=== PATIENT | female | born 1995 | race Caucasian/White ===

== ENCOUNTER 2018-08-05 16:09 | Emergency (ER) | payer MEDICAID, SELFPAY ==
[2018-08-05 16:10] VITALS: BP 123/88; PULSE 111; RESP 16; TEMP 37.5; O2SAT 99; BMI 23.3
[2018-08-05 17:30] LABS: Absolute Lymphocyte Count 1.28 X10^3/ul (0.83-4.51); Absolute Neutrophil Count 4.6 X10^3/uL (2.0-7.7); Basophil# 0.01 X10^3/uL; Basophil% 0.2 % (0-1); Eosinophil# 0.04 X10^3/uL; Eosinophils% 0.6 % (0-5); Hematocrit 43.4 % (37-47); Hemoglobin 14.8 g/dl (12.0-15.0); Lymphocyte # 1.28 X10^3/ul (4.0); Lymphocyte % 19.7 % (19-41); Mean Corp Hgb Conc 34.1 g/gl (32-36); Mean Corpuscular Volume 87.9 fL (81-99); Mean Platelet Vol. 9.8 fl (6.2-12.0); Monocyte% 9.2 % (0-10); Neutrophil # 4.55 X10^3/uL (2.7-7.7); Neutrophil % 70.1 % (47-70); Platelet Count 155 K/mm3 (150-450); RBC Distribution Width CV 12.1 % (11.6-14.6); RBC Distribution Width SD 38.9 fl (35.1-43.9); Red Blood Count 4.94 M/mm3 (4.2-5.4); White Blood Count 6.5 K/mm3 (4.4-11.0)
[2018-08-05 17:38] LABS: POSITIVE COUNT NO; POSITIVE DIFFERENTIAL NO; POSITIVE MORPHOLOGY NO
[2018-08-05 18:05] LABS: Pregnancy, Serum, hCG Quali. NEGATIVE Negative (0-9 Nonpreg)
--- NOTE | 2018-08-05 18:14 | ED.VISSUMM ---
- ER Visit Summary Date of Service: 08/05/18 Chief Complaint: [Vaginal bleeding] History of Present Illness: The patient is a 23 F [presents to the emergency department with complaint of vaginal bleeding that started 10 days ago. Patient states that she had been on control and then decided that she wanted to try to get and she stopped taking her control. Patient had a. On July 08. Patient then subsequently started bleeding again 10 days ago. Patient states that she took a test on July 24 because she was prescribed an antibiotic for an upper respiratory infection and it was negative at that time. Patient concerned that she might be possibly and is O- blood type. Patient describes some minimal lower abdominal discomfort. Patient denies any urinary symptoms.] Patient describes bleeding as light and has not been heavy. She is not passing clots. At times it is dark blood and at times it is bright red. Patient likens it to a light period. Physical Examination: [HEENT-PERRLA, EOMI. Cranial nerves II through XII grossly intact. TMs clear. Mucous membranes moist. No adenopathy. Cardiovascular-regular rate and rhythm without murmur or ectopy Lungs-clear to auscultation, chest wall stable without crepitus or subcu emphysema Abdomen-normoactive bowel sounds, soft. Patient has minimal tenderness over the suprapubic region. There is no rebound, rigidity, or perineal signs. Extremities-intact ?4, normal range of motion, normal pulses, atraumatic] Test Results: [CBC with differential obtained was normal. Serum hCG was negative.] Emergency Department Course and Treatment: [None] Treatment Plan: [None indicated] Disposition: [Discharged home in stable condition. 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 It may contain incorrect words, spelling, and punctuation that were not noted in review of the chart prior to signing ED Disposition - Plan for ED Patient: Chief Complaint: Vag Bleeding Referrals: Larry Lara MD [Primary Care Provider] -
--- NOTE | 2018-08-05 18:18 | ED.DEP ---
ED Disposition - Plan for ED Patient: Chief Complaint: Vag Bleeding Instructions: ED Bleed Irregular Vaginal Referrals: Larry Lara MD [Primary Care Provider] - Cynthia Deras MD [STAFF PHYSICIAN] - 3-5 Days
[2018-08-05 18:34] VITALS: BP 120/80; PULSE 76; RESP 18; O2SAT 99
== END 2018-08-05 18:34 | disposition home or self-care (01) ==
LOC: ED 18:26
PROVIDERS: Emergency Medicine; Emergency Provider Emergency Medicine
DX: N93.8 Other specified abnormal uterine and vaginal bleeding (principal); Z72.0 Tobacco use
CPT/HCPCS: 84703; 85025; 86900; 86901; 99282

== ENCOUNTER 2025-09-28 15:39 | Emergency (ER) | payer SELFPAY ==
[2025-09-28 15:40] VITALS: BP 137/95; PULSE 93; RESP 16; TEMP 37; O2SAT 100; BMI 22.8
--- NOTE | 2025-09-28 19:08 | EX.ED.UPPERE ---
HPI History of Present Illness HPI Narrative: Patient presents with a dog bite to her left thumb that occurred 3 days ago. 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 Patient states that this was a puppy and was not vaccinated against rabies. Patient states she is unable to track the dog. Patient states she contacted someone at the health department and was told to come to the emergency department for rabies vaccine. Patient denies any paresthesias or weakness. Chief Complaint: Bite Informant: patient Occured/Mechanism Comment: Dog bite Onset/Context/Timing Onset: Days (3) Timing: Continuous Quality of Pain: - (Tightness) Location: Left thumb Narrative Tetanus Immunization: <5 years PFSH PFSH Medical History no medical history no medical history Home Medications ?Medication ?Instructions ?Recorded ?Last Taken ?Type NK 08/05/18 Unknown History Allergy/AdvReac Type Severity Reaction Status Date / Time No Known Allergies Allergy Verified 09/28/25 15:42 Surgical History no surgical history no surgical history Social History Smoking Status: Current every day smoker tobacco type: e-cigarettes ROS ROS ED Constitutional Constitutional ED: Denies chills or fever(s) Eyes Eyes: Denies blurry vision or change in vision ENT ENT ED: Denies rhinorrhea or sore throat Cardiovascular Cardiovascular: Denies chest pain or palpitations Respiratory/Chest Respiratory/Chest: Denies cough or dyspnea Gastrointestinal Gastrointestinal: Denies nausea or vomiting Genitourinary Genitourinary ED: Denies dysuria or hematuria Musculoskeletal Musculoskeletal: Denies back pain or neck pain Integumentary Denies abscess or rash Neurologic Neurologic: Denies headache(s) or weakness Allergic/Immunologic Allergic/Immunologic ED: Denies mouth swelling or urticaria EXAM Physical Exam Const Vital Signs: 09/28/25 15:40 Temperature 98.6 F Temperature Source Oral Pulse Rate 93 Respiratory Rate 16 Blood Pressure 137/95 H Blood Pressure Mean 109 Pulse Ox 100 Oxygen Delivery Method Room Air Positive well nourished and well developed General Appearance ED: well developed and NAD HEENT Reports moist mucous membranes normocephalic and atraumatic Neck full ROM and supple Extremity Extremity Narrative: There is a healing dog bite over the dorsal aspect of the left thumb over the IP joint. There is good range of motion. There is no evidence of joint infection. There is no evidence of wound infection. Sensation was intact to light touch in all digits. Capillary refill was less than 2 seconds in all digits. Strength is 5/5 in in flexion and extension of the MP and IP joints of the left thumb. Neuro oriented x3, CN's II-XII intact bilaterally, moves all extremities, no focal motor deficits and no sensory deficits noted Sensorium / Orientation: alert Motor Exam: strength 5/5 throughout MDM MDM MDM Narrative Medical decision making narrative: Patient was given injection of rabies immunoglobulin around the wound. The remainder of the rabies immunoglobulin was given intramuscularly. Patient was given rabies vaccine intramuscularly. Patient was instructed to follow-up in 3 days for repeat vaccine. Discharge Plan Triage Chief Complaint: Bite ED Provider: Alejandro Price Dx/Rx/DC Orders Clinical Impression: Dog bite of left thumb, Nicotine vapor product user Instructions: ED Dog Bite Prescriptions: No Action NK Primary Care Provider: Bessy Jamil RESIDENTIAL MONITOR Referrals: Larry Lara MD [Non-Staff, Family Practice] - As Needed Print Language: Indonesian Disposition Disposition: Home, Self Care
[2025-09-28] MEDS: Rabies Immune Globulin/PF 300 UNIT/ML, 5 ML VIAL 1100 UNIT IM (19:52)
[2025-09-28 20:24] VITALS: BP 111/67; PULSE 78; RESP 16; TEMP 36.6; O2SAT 99
== END 2025-09-28 20:25 | disposition home or self-care (01) ==
PROVIDERS: Emergency Provider Emergency Medicine; PCP Nurse Practitioner Family; Visit Provider Emergency Medicine
DX: S61.052A Open bite of left thumb without damage to nail, initial encounter (principal); W54.0XXA Bitten by dog, initial encounter; F17.290 Nicotine dependence, other tobacco product, uncomplicated; Z23 Encounter for immunization
CPT/HCPCS: 90675; 96372; 99282; 90375

== ENCOUNTER 2025-10-01 09:36 | Outpatient (CLI) | payer SELFPAY ==
[2025-10-01 10:05] VITALS: BP 112/79; PULSE 75; RESP 16; TEMP 36.9; O2SAT 100; BMI 22.6
== END 2025-10-01 11:37 | disposition home or self-care (01) ==
PROVIDERS: PCP Nurse Practitioner Family; Visit Provider Emergency Medicine
DX: Z23 Encounter for immunization (principal)
CPT/HCPCS: 90675

== ENCOUNTER 2025-10-05 09:30 | Outpatient (CLI) | payer SELFPAY ==
[2025-10-05 09:30] VITALS: BP 125/85; PULSE 67; RESP 16; O2SAT 100
[2025-10-05 09:31] VITALS: BP 125/85; PULSE 71; O2SAT 100; BMI 22.6
[2025-10-05 09:56] VITALS: BP 125/78; PULSE 84; RESP 16; TEMP 36.1; O2SAT 100
== END 2025-10-05 10:13 | disposition home or self-care (01) ==
PROVIDERS: PCP Nurse Practitioner Family; Visit Provider Emergency Medicine
DX: Z23 Encounter for immunization (principal)
CPT/HCPCS: 90675; 96372

== ENCOUNTER 2025-10-12 09:31 | Outpatient (CLI) | payer SELFPAY ==
[2025-10-12 09:32] VITALS: BP 101/79; PULSE 82; RESP 18; TEMP 36.6; O2SAT 100; BMI 22.6
--- OUTSIDE RECORDS SUMMARY | 2025-10-12 11:22 | XMS RPT_ITS | CCD ---
Author Organization [facility] Care Team Providers Care Retail Special Event Associate Name Role Phone FRED AHRP DO Admitting Unavailable FRED HARP DO Attending Unavailable FRED HARP DO Primary Care Unavailable BESSY MAYERS CNP Consulting Unavailable BESSY MAYERS CNP Referring Unavailable PROVIDER, UNKNOWN Consulting Unavailable PROVIDER, UNKNOWN Consulting Unavailable Fred Price Attending Unavailable Krystal DIAGNOSTIC ASSISTANT, Bessy Primary Care Unavailable Fred Price Attending Unavailable Krystal DIAGNOSTIC ASSISTANT, Bessy Primary Care Unavailable Krystal DIAGNOSTIC ASSISTANT, Bessy Primary Care Unavailable Fred Price Attending Unavailable Problems Problem Classification Problem Date Documented Da te Episodic/Chronic Immunizations and screening for infectious disease (1 source) Encounter for immunization; Translations: [Encounter for immunization] Onset: 10-05-2025 Episodic Open wounds of extremities (1 source) Open bite of left thumb without damage to nail, initial encounter; Translations: [Open bite of left thumb without damage to nail, initial encounter] Onset: 10-06-2025 Episodic Results Test Name Value Interpretation Reference Range Facility Emergency Department Summary on 09-28-2025 Emergency Department Summary [facility] Medical Records Department [address] [place] [id number] Emergency Department Summary 09/28/25 MR#: [id number] Acct: [id number] Name: JERAD MANN Rep #: [id number] : 1995 30 From: Fred Price DO PCP: NADIRA Jain Status:DEP ER Location: ED HPI History of Present Illness HPI Narrative: Patient presents with a dog bite to her left thumb that occurred 3 days ago. 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 Patient states that this was a puppy and was not vaccinated against rabies. Patient states she is unable to track the dog. Patient states she contacted someone at the health department and was told to come to the emergency department for rabies vaccine. Patient denies any paresthesias or weakness. Chief Complaint: Bite Informant: patient Occured/Mechanism Comment: Dog bite Onset/Context/Timing Onset: Days (3) Timing: Continuous Quality of Pain: - (Tightness) Location: Left thumb Narrative Tetanus Immunization: <5 years PFSH PFSH Medical History no medical history no medical history Home Medications ???Medication ???Instructions ???Recorded ???Last Taken ???Type NK 08/05/18 Unknown History Allergy/AdvReac Type Severity Reaction Status Date / Time No Known Allergies Allergy Verified 09/28/25 15:42 Surgical History no surgical history no surgical history Social History Smoking Status: Current every day smoker tobacco type: e-cigarettes ROS ROS ED Constitutional Constitutional ED: Denies chills or fever(s) Eyes Eyes: Denies blurry vision or change in vision ENT ENT ED: Denies rhinorrhea or sore throat Cardiovascular Cardiovascular: Denies chest pain or palpitations Respiratory/Chest Respiratory/Chest: Denies cough or dyspnea Gastrointestinal Gastrointestinal: Denies nausea or vomiting Genitourinary Genitourinary ED: Denies dysuria or hematuria Musculoskeletal Musculoskeletal: Denies back pain or neck pain Integumentary Denies abscess or rash Neurologic Neurologic: Denies headache(s) or weakness Allergic/Immunologic Allergic/Immunologic ED: Denies mouth swelling or urticaria EXAM Physical Exam Const Vital Signs: 09/28/25 15:40 Temperature 98.6 F Temperature Source Oral Pulse Rate 93 Respiratory Rate 16 Blood Pressure 137/95 H Blood Pressure Mean 109 Pulse Ox 100 Oxygen Delivery Method Room Air Positive well nourished and well developed General Appearance ED: well developed and NAD HEENT Reports moist mucous membranes normocephalic and atraumatic Neck full ROM and supple Extremity Extremity Narrative: There is a healing dog bite over the dorsal aspect of the left thumb over the IP joint. There is good range of motion. There is no evidence of joint infection. There is no evidence of wound infection. Sensation was intact to light touch in all digits. Capillary refill was less than 2 seconds in all digits. Strength is 5/5 in in flexion and extension of the MP and IP joints of the left thumb. Neuro oriented x3, CN's II-XII intact bilaterally, moves all extremities, no focal motor deficits and no sensory deficits noted Sensorium / Orientation: alert Motor Exam: strength 5/5 throughout MDM MDM MDM Narrative Medical decision making narrative: Patient was given injection of rabies immunoglobulin around the wound. The remainder of the rabies immunoglobulin was given intramuscularly. Patient was given rabies vaccine intramuscularly. Patient was instructed to follow-up in 3 days for repeat vaccine. Discharge Plan Triage Chief Complaint: Bite ED Provider: Fred Price Dx/Rx/DC Orders Clinical Impression: Dog bite of left thumb, Nicotine vapor product user Instructions: ED Dog Bite Prescriptions: No Action NK Primary Care Provider: Bessy Mayers NP Referrals: Larry Lara MD [Non-Staff, Family Practice] - As Needed Print Language: Lithuanian Disposition Disposition: Home, Self Care What to do if you have Problems For any increased pain, shortness of breath, bleeding, nausea or vomiting, chest pain, or any unexpected problems, contact your Primary Care Provider. Call [facility] ([phone]) or report to the closest Emergency Room. Call 911 if necessary. 09/29/25 0105 Cosigner Signature (if applicable): CC: DIAGNOSTIC ASSISTANT-C Bessy Mayers Signed Normal [facility] C-REACTIVE PROTEINon 025 CRP 9.85 mg/dl High 0.00 - 0.90 [facility] Comment on above: Performed By: #### 2 [id number] #### [facility],[address] [place], [place] [id number] CBC + DIFFon 04-26-2025 Baso # 0.01 x10EE3/UL Normal 0.00 - 0.10 [facility] Comment on above: Performed By: #### 2 22595 #### [facility],[address] [place] [address]995 Basophils/100 WBC (Bld) 0.2 % Normal 0.0 - 2.0 [facility] Comment on above: Performed By: #### 2 87094 #### [facility],[address] [place], [place] [id number] CBC + DIFF Normal [facility] Comment on above: Result Comment: CBC- COMPLETE BLOOD COUNT Performed By: #### 2 06842 #### [facility],[address] [place] [address] EO # 0.08 x10EE3/UL Normal 0.00 - 0.50 [facility] Comment on above: Performed By: #### 2 13792 #### [facility],[address] [place] [address] Eosinophils/100 WBC (Bld) 1.1 % Normal 0.0 - 7.0 [facility] Comment on above: Performed By: #### 2 51880 #### [facility],[address] [place] [address] Erythrocyte distribution width (RBC) [Ratio] 13.0 % Normal 12.0 - 15.6 [facility] Comment on above: Performed By: #### 2 64755 #### [facility],[address] [place] [address] Hematocrit (Bld) [Volume fraction] 38.0 % Normal 34.0 - 46.0 [facility] Comment on above: Performed By: #### 2 25284 #### [facility],[address] [place], [place] [id number] Hemoglobin (Bld) [Mass/Vol] 13.6 g/dL Normal 12.0 - 16.0 [facility] Comment on above: Performed By: #### 2 27369 #### [facility],[address] [place], [place] [id number] Lymph # 0.92 x10EE3/UL Normal 0.80 - 2.80 [facility] Comment on above: Performed By: #### 2 41555 #### [facility],[address] [place], [place] [id number] Lymphocytes/100 WBC (Bld) 13.5 % Low 20.0 - 45.0 [facility] Comment on above: Performed By: #### 2 58012 #### [facility],[address] [place] [address] MANUAL DIFF N/A Normal [facility] Comment on above: Performed By: #### 2 41856 #### [facility],[address] [place] [address] MCH (RBC) [Entitic mass] 31 pg Normal 27 - 33 [facility] Comment on above: Performed By: #### 2 86067 #### [facility],[address] [place] [address] MCHC 36 X10 3 Normal 32 - 36 [facility] Comment on above: Performed By: #### 2 98944 #### [facility],[address] [place] [address] MCV (RBC) [Entitic vol] 86 fL Normal 80 - 99 [facility] Comment on above: Performed By: #### 2 08615 #### [facility],[address] [place] [address] Rolette # 0.57 x10EE3/UL Normal 0.20 - 1.00 [facility] Comment on above: Performed By: #### 2 51548 #### [facility],[address] [place] [address] MONOS % 8.5 % Normal 0.0 - 10.0 [facility] Comment on above: Performed By: #### 2 12105 #### [facility],[address] [place] [address] Morphology Gregorio (Bld) [Interp] N/A Normal [facility] Comment on above: Performed By: #### 2 46135 #### [facility],[address] [place] [address] Neut # 5.19 x10EE3/UL Normal 1.50 - 7.10 [facility] Comment on above: Performed By: #### 2 64371 #### [facility],[address],[place] [address] Neutrophils/100 WBC (Bld) 76.7 % High 46.0 - 76.0 [facility] Comment on above: Performed By: #### 2 89344 #### [facility],[address] [place] [address] 26575 PLATELET 136 x10EE3/UL Low 150 - 450 [facility] Comment on above: Performed By: #### 2 41238 #### [facility],[address] [place] [address] 13033 Platelet mean volume (Bld) [Entitic vol] 7.6 fL Normal 6.6 - 10.5 [facility] Comment on above: Result Comment: AUTO MATED DIFFERENTIAL Performed By: #### 2 57651 #### [facility],[address] [place] [address] 65079 RBC 4.43 x 10EE6/UL Normal 4.10 - 5.30 [facility] Comment on above: Performed By: #### 2 68245 #### [facility],[address] [place] [address]657 WBC 6.8 x 10EE3/UL Normal 4.5 - 10.8 [facility] Comment on above: Performed By: #### 2 20582 #### [facility],[address] [place] [address] 13550 CMP with eGFRon 04-26-2025 AGE 30 years Normal [facility] Comment on above: Performed By: #### 2 63632 #### [facility],[address] [place] [address]3862 Albumin [Mass/Vol] 3.2 g/dL Low 3.4 - 5.0 [facility] Comment on above: Performed By: #### 2 72621 #### [facility],[address] [place] [address] 41006 Albumin/Globulin [Mass ratio] 0.9 {ratio} Normal 0.9 - 1.6 [facility] Comment on above: Performed By: #### 2 44961 #### [facility],[address] [place] [address] 99401 ALK PHOS 86 U/L Normal 46 - 116 [facility] Comment on above: Performed By: #### 2 47179 #### [facility],[address] [place] [address] 80148 ALT [Catalytic activity/Vol] 33 U/L Normal 16 - 63 [facility] Comment on above: Performed By: #### 2 63567 #### [facility],[address] [place] [address] 97101 Anion gap [Moles/Vol] 12 mmol/L Normal 10 - 20 [facility] Comment on above: Performed By: #### 2 95583 #### [facility],[address] [place] [address] 60140 AST [Catalytic activity/Vol] 29 U/L Normal 13 - 39 [facility] Comment on above: Performed By: #### 2 26105 #### [facility],[address] [place] [address] 99130 B/C RATIO 15 ratio Normal 0 - 30 [facility] Comment on above: Performed By: #### 2 07122 #### [facility],[address] [place] [address] 80119 Bilirubin [Mass/Vol] 0.5 mg/dL Normal 0.2 - 1.0 [facility] Comment on above: Performed By: #### 2 32001 #### [facility],[address] [place] [address] 48351 Calcium [Mass/Vol] 8.5 mg/dL Normal 8.5 - 10.1 [facility] Comment on above: Performed By: #### 2 44380 #### [facility],[address] [place] [address] 44882 Chloride [Moles/Vol] 100 mmol/L Normal 98 - 107 [facility] Comment on above: Performed By: #### 2 83830 #### [facility],[address] [place] [address] 22949 CMP with eGFR Normal [facility] Comment on above: Result Comment: COMP REHENSIVE METABOLIC PANEL Performed By: #### 2 06545 #### [facility],[address] [place] [address] 43896 CO2 [Moles/Vol] 26.5 mmol/L Normal 21.0 - 32.0 [facility] Comment on above: Performed By: #### 2 66762 #### [facility],[address] [place] [address] 21192 Creatinine [Mass/Vol] 0.86 mg/dL Normal 0.55 - 1.02 [facility] Comment on above: Performed By: #### 2 21515 #### [facility],[address] [place] [address] 41568 GFR/1.73 sq M.predicted among non-blacks MDRD (S/P/Bld) [Vol rate/Area] mL/min/{1.73_m2} Normal 60 - 999 [facility] Comment on above: Performed By: #### 2 42620 #### [facility],[address] [place] [address] Result Comment: ACCO RDING TO THE NATIONAL KIDNEY DISEASE EDUCATION PROGRAM(NKDE), A NORMAL eGFR IS A VALUE GREATER THAN OR EQUAL TO 60 ML/MIN/1.73 SQ METERS. CHRONIC KIDNEY DISEASE: <60mL/MIN/1.73 SQ METERS KIDNEY FAILURE: <15mL/MIN/1.73 SQ METERS THIS TEST SHOULD ONLY BE USED FOR PATIENTS 18 YEARS OF AGE AND OLDER. Globulin (S) [Mass/Vol] 3.5 g/dL Normal 1.5 - 3.8 [facility] Comment on above: Performed By: #### 2 66152 #### [facility],[address] [place] [address] 20561 Glucose [Mass/Vol] 136 mg/dL High 74 - 106 [facility] Comment on above: Performed By: #### 2 30312 #### [facility],[address] [place] [address] 66635 Potassium [Moles/Vol] 3.4 mmol/L Low 3.5 - 5.1 [facility] Comment on above: Performed By: #### 2 27025 #### [facility],[address] [place] [address] 39139 Protein [Mass/Vol] 6.7 g/dL Normal 6.4 - 8.2 [facility] Comment on above: Performed By: #### 2 20785 #### [facility],[address] [place] [address] 24652 Sodium [Moles/Vol] 135 mmol/L Low 136 - 145 [facility] Comment on above: Performed By: #### 2 57744 #### [facility],[address] [place] [address] 19033 Urea nitrogen [Mass/Vol] 13 mg/dL Normal 7 - 18 [facility] Comment on above: Performed By: #### 2 23152 #### [facility],[address] [place] [address] ED MED ADMINISTRATION DETAIL on 04-26-2025 ED MED ADMINISTRATION DETAIL Instrument Sterilizer Medication Administration Record [address] [address] [id number] 04/26/2025 Patient: JERAD MANN Sex: Female : 1995 Age: 30y MEASUREMENTS: Wt: 54.4 kg, Ht/Srinivas: 61.0 in, BMI: 22.67 ALLERGIES: No known drug allergies Medication Ordered Medication Administration Date/Time CefTRIAXone 17:14 04/26 CefTRIAXone (Rocephin) IVPB 2gm/50ml NS 2 g Started (Rocephin) IVPB started at 100 mL/hr diluted in sodium chloride IVPB 0.9 % 17:14 04/26/2025 2gm/50ml NS 2 g Minibag+ 50 mL via Site# 1. Allergies verified and confirmed 5 Cee Mejia R.N. diluted in sodium rights. IV patency established. IV site checked: no pain, redness, or Stopped chloride IVPB 0.9 % swelling. IV flushed thoroughly pre-medication administration. - 17:37 04/26/2025 Minibag+ 50 mL at 17:14 Tanisha Scott R.N. 100 mL/hr (NOW x1) Scanned 17:37 04/26 Medication Discontinued: IV completed. Total amount infused: 50 mL. IV patency established. IV site checked: no pain, redness, or swelling. IV flushed thoroughly post-medication administration. - 17:47 Cee Mejia R.N. Bactrim DS PO 1 17:14 04/26 Bactrim DS PO 1 tab given. Allergies verified and Given tab (NOW x1) confirmed 5 rights. Information reviewed. Verbalizes 17:14 04/26/2025 understanding. - 17:14 Tanisha Scott R.N. Scanned 1 of 1 Normal [facility] ED NURSES CLINICAL NOTEon ED NURSES CLINICAL NOTE Nurse Narrative Nurse Clinical Narrative [address] [address] [id number] 04/26/2025 15:16:00 Patient: JERAD MANN Sex: Female : 1995 Age: 30y Disposition: Discharge Disposition Decision Time: 17:15 04/26/2025 Departure Time: 17:46 04/26/2025 TRIAGE Arrived by private vehicle. Historian: (patient). Accompanied by family. Primary physician (krystal). Triage time: 15:23 04/26/2025. Acuity: LEVEL 3. Chief Complaint: SKIN RASH. SEPSIS SCREEN: NEGATIVE. SIRS criteria negative: heart rate greater than 90. Possible sources of infection: infection of soft tissue. -- 15:28 04/26/25 EDT Charlotte Vazquez R.N. 15:26 04/26/25. BP: 111/65 MAP: 80. HR: 102. RR: 18. O2 saturation: 97% Temperature: 98.5 F. Pain level now 9/10. [place] Coma Scale: 15 - eyes open - spontaneous (4); best verbal response - oriented (5); best motor response - obeys commands (6). -- 15:04/26/25 EDT Charlotte Vazquez R.N. Measurements: 15:04/26/25 Wt: 54.4 kg, Ht/Srinivas: 61.0 in, BMI: 22.67 -- 15:04/26/25 EDT Charlotte Vazquez R.N. Medications: no known home medications -- 15:04/26/25 EDT Charlotte Vazquez R.N. 15:04/26/25. Preferred Pharmacy: ; [place] ([facility]). -- 15:04/26/25 EDT Charlotte Vazquez R.N. 1 of 3 Nurse Narrative Allergies: no known drug allergies -- 15:04/26/25 EDT Charlotte Vazquez R.N. Problems: no known problem -- 15:04/26/25 EDT Charlotte Vazquez R.N. Surgeries: no known surgical history -- 15:04/26/25 EDT Charlotte Vazquez R.N. History 15:04/26/25. SOCIAL HX: Former smoker. No alcohol use or drug use. The patient has not traveled outside the [place] Infectious disease exposure: No infectious disease exposure. ABUSE ASSESSMENT: The patient answered yes to the question(s) Do you feel safe in your home? and no to the question(s) Are you afraid to go home?. Abuse denied. SELF HARM ASSESSMENT: Self harm assessment was performed. The patient answered no to the question(s) Have you recently felt down, depressed, or hopeless? and Do you have thoughts of harming or killing yourself?. FALL RISK ASSESSMENT: Fall risk assessment completed. No risk factors identified. -- 15:04/26/25 EDT Charlotte Vazquez R.N. Interventions 15:04/26/25. Advanced care plan discussed with patient. Patient does not have advanced directive. -- 15:04/26/25 EDT Charlotte Vazquez R.N. PHYSICAL ASSESSMENT 15:45 04/26/25. Ambulatory to room. GENERAL / NEURO / PSYCH: Alert. The patient does not appear to be in acute distress. Oriented X 4. HEENT: Pupils equal, round and reactive to light. Mucous membranes are pink. 2 of 3 Nurse Narrative RESPIRATORY: Respirations not labored. CVS: Pulses within normal limits. GI / : Abdomen nontender. SKIN: Skin is intact, warm and dry. Well-demarcated, tender, warm skin rash with an erythematous base present in the right axilla. Normal skin turgor. Skin tenderness present. -- 16:00 04/26/25 TARAH Mejia R.N. NURSING PROGRESS NOTES 15:55 04/26/25. Site #1 started via IV in the right antecubital space with a 20g angiocath; 1 attempt. Blood drawn: rainbow set and ware tube(s). Saline lock flushed with 5 mL saline. -- 15:55 04/26/25 TARAH Mejia R.N. 17:14 04/26/25. CefTRIAXone (Rocephin) IVPB 2gm/50ml NS 2 g started at 100 mL/hr diluted in sodium chloride IVPB 0.9 % Minibag+ 50 mL via Site# 1. Allergies verified and confirmed 5 rights. IV patency established. IV site checked: no pain, redness, or swelling. IV flushed thoroughly pre-medication administration. -- 17:14 04/26/25 TARAH Mejia R.N. 17:14 04/26/25. Bactrim DS PO 1 tab given. Allergies verified and confirmed 5 rights. Information reviewed. Verbalizes understanding. -- 17:14 04/26/25 TARAH Mejia R.N. DISPOSITION / DISCHARGE 17:37 04/26/25. CefTRIAXone (Rocephin) IVPB 2gm/50ml NS: Medication Discontinued. IV completed. Total amount infused: 50 mL. IV patency established. IV site checked: no pain, redness, or swelling. IV flushed thoroughly post-medication administration. -- 17:47 04/26/25 TARAH Mejia R.N. 17:42 04/26/25. Site #1 removed upon discharge. -- 17:47 04/26/25 TARAH Mejia R.N. Departure time: 17:46 04/26/2025. Condition at departure: stable. No learning barriers present. Reviewed medication(s). Reviewed referrals. Patient verbalized understanding. Written instructions provided in Lithuanian. The patient was discharged home and accompanied by spouse. The patient left ambulatory and via private vehicle. Spouse driving. -- 17:47 04/26/25 EDT Cee Mejia R.N. (Electronically signed by Cee Mejia R.N. 04/26/25 17:48:12 EDT) Generated by [facility] 3 of 3 Normal [facility] ED ORDER SHEET (CPOE ONLY)on 04-26-2025 ED ORDER SHEET (CPOE ONLY) Order Sheet Order Sheet [facility] [address] [facility] [place] [address] [id number] 04/26/2025 Patient: JERAD MANN Sex: Female : 1995 Age: 30y MEASUREMENTS: Wt: 54.4 kg, Ht/Srinivas: 61.0 in, BMI: 22.67 ALLERGIES: No known drug allergies MEDICATION/IV/DRIP/FL UID ORDERS Order Description Priority Entered Acknowledged Completed CefTRIAXone (Rocephin) IVPB 17:03 04/26/2025 17:12 17:14 2gm/50ml NS2 g diluted in Fred Harp D.O. 04/26/2025 04/26/2025 sodium chloride IVPB 0.9 % Cee Scott Minibag+ 50 mL at 100 mL/hr R.N. R.N. (NOW x1) Bactrim DS PO1 tab (NOW x1) 17:03 04/26/2025 17:12 17:14 Joselin SanchezOMelvin 04/26/2025 04/26/2025 Cee Scott R.N. RMelvinNMelvin LAB ORDERS Order Description Priority Entered Acknowledged Collected Completed CBC w Diff Stat Stat 15:33 04/26/2025 15:49 04/26/2025 16:01 04/26/2025 Cee Sanchez R.N. Tessa Miller, R.N. DMelvinOMelvin Lactate, Serum Stat Stat 15:33 04/26/2025 15:49 04/26/2025 16:01 04/26/2025 Cee Sanchez R.N. Tessa Miller, R.N. 1 of 2 Order Sheet D.OMelvin CMP Stat Stat 15:33 04/26/2025 15:49 04/26/2025 16:01 04/26/2025 Cee Sanchez R.N. Tessa Miller, R.N. D.O. CRP Stat Stat 15:33 04/26/2025 15:49 04/26/2025 16:01 04/26/2025 Cee Sanchez R.N. Tessa Miller, R.N. D.O. DIAGNOSTIC STUDY ORDERS Order Description Priority Entered Acknowledged Completed STAFF ORDERS Order Description Priority Entered Acknowledged Collected Completed [Electronically signed by Fred Harp D.O. (04/26/2025 17:06 EDT)] [Electronically signed by Fred Harp D.O. (04/26/2025 17:07 EDT)] [Electronically signed by Fred Harp D.O. (04/26/2025 17:39 EDT)] 2 of 2 Normal [facility] ED PHYSICIAN CLINICAL REPORT on 04-26-2025 ED PHYSICIAN CLINICAL REPORT Narrative Physician Clinical Narrative [address] [address] [id number] 04/26/2025 15:16:00 Patient: JERAD MANN Sex: Female : 1995 Age: 30y Disposition: Discharge Disposition Decision Time: 17:15 04/26/2025 Measurements Wt: 54.4 kg, Ht/Srinivas: 61.0 in, BMI: 22.67 Initial Vital Sign Measured Time BP MAP HR RR O2Sat ETCO2 Temp Pain GCS RTS 15:26 04/26/2025 111/65 80 102 18 97% 98.5 F 9 15 Time Seen: 15:27 04/26/2025. Arrived- By private vehicle. Historian- patient. HISTORY OF PRESENT ILLNESS Chief Complaint: SKIN RASH and TENDER AREA. (patient with a reddened area on the right below the axilla knee in the posterior back that is reddened and tender. She was started on Keflex 2 days ago she has taken any pills. It is not improving. She says that she has had fever as high as 104. No shaking chills. She thinks she scratched it on a fence. Uncertain.). Not itchy. It is described as painful and burning. It has been located on the right back (Just under the right axilla / right thoracic). It has been located in the axilla (knee other right axilla). It has not been generalized in location or located on the right upper extremity or over the right lower extremity or left lower extremity. No rash to face. Not located on the scalp, neck or left upper extremity. No recent insect bite or food exposure. Was not recently exposed to poison margaux. Similar symptoms previously. Recent medical care: The patient was seen recently by a health care provider (at urgent care 2 days ago started on Keflex.). of 10 Narrative REVIEW OF SYSTEMS NEUROLOGICAL: No headache. CVS: No chest pain. EYES: No eye irritation. CONSTITUTIONAL: The patient has had fever and chills. THROAT: No sore throat or hoarseness. RESPIRATORY: No cough or difficulty breathing. ENDO/HEME/LYMPH: No enlarged lymph nodes. GI: No abdominal pain, nausea or vomiting. PAST HISTORY See nurses notes. no known problem Surgeries: no known surgical history Medications: no known home medications Allergies: no known drug allergies SOCIAL HISTORY Former smoker. No alcohol use or drug use. No recent travel. FAMILY HISTORY Negative. ADDITIONAL NOTES The nursing notes have been reviewed with agreement regarding the chief complaint, PMH and patient medications and allergies. PHYSICAL EXAM 2 of 10 Narrative Vital Signs: Have been reviewed. Appearance: Alert. Oriented X3. No acute distress. Eyes: Conjunctivae and eyelids normal. ENT: Pharynx normal. Neck: Neck supple. CVS: Normal heart rate and rhythm. Heart sounds normal. Respiratory: No respiratory distress. Breath sounds normal. Chest nontender. Abdomen: Nontender. No organomegaly. Skin: Skin warm and dry. Normal skin color. No rash. Normal skin turgor. Medium area of cellulitis with tenderness, erythema and warmth to right axilla. No lymphangitis. Moderate, well-demarcated, raised, blanching skin rash with an erythematous base on the right breast and back. No macular, papular, petechial, vesicular or urticarial skin rash. No ulcerative, weeping, crusting or excoriated skin rash. No skin rash with a target-like or cobblestone appearance or in the skin folds or generalized skin rash. Extremities: Normal external inspection. Extremities nontender. Neuro: Oriented X 3. LABS, X-RAYS, AND EKG Laboratory Tests: C-REACTIVE PROTEIN Final VANDANA: 04/26/2025 15:45:00 EDT MsgRcvd: 04/26/2025 16:35 EDT Lab Test Result Reference Status Received Comments 9.85 mg/dl 04/26/2025 16:35 CRP 0.00 - 0.90 Final Above high normal EDT CBC + DIFF Final VANDANA: 04/26/2025 15:45:00 EDT MsgRcvd: 04/26/2025 16:11 EDT Lab Test Result Reference Status Received Comments 04/26/2025 16:11 CBC-COMPLETE CBC + DIFF Final EDT BLOOD COUNT 3 of 10 Narrative Lab Test Result Reference Status Received Comments 04/26/2025 16:11 WBC 6.8 x 10/UL 4.5 - 10.8 Final EDT 04/26/2025 16:11 RBC 4.43 x 10/UL 4.10 - 5.30 Final EDT 04/26/2025 16:11 HEMOGLOBIN 13.6 g/dl 12.0 - 16.0 Final EDT 04/26/2025 16:11 HEMATOCRIT 38.0 % 34.0 - 46.0 Final EDT 04/26/2025 16:11 MCV 86 fl 80 - 99 Final EDT 04/26/2025 16:11 MCH 31 pg 27 - 33 Final EDT 04/26/2025 16:11 MCHC 36 X10 3 32 - 36 Final EDT 04/26/2025 16:11 RDW/CV 13.0 % 12.0 - 15.6 Final EDT 136 x10/UL 04/26/2025 16:11 PLATELET 150 - 450 Final Below low normal EDT 04/26/2025 16:11 AUTOMATED MPV 7.6 fl 6.6 - 10.5 Final EDT DIFFERENTIAL 76.7 % 04/26/2025 16:11 NEUT % 46.0 - 76.0 Final Above high normal EDT 13.5 % 04/26/2025 16:11 LYMPH % 20.0 - 45.0 Final Below low normal EDT 04/26/2025 16:11 MONOS % 8.5 % 0.0 - 10.0 Final EDT 4 of 10 Narrative Lab Test Result Ref (more content not included)... Normal [facility] ED SUPER BILLon 04-26-2025 [facility] [address] [address] [id number] 04/26/2025 Patient: JERAD MANN Sex: Female : 1995 Age: 30y Item Facility Professional Category Description Code Code Quantity Fee Total Nurse/E/M EMERGENCY 894365 1 $0.00 $0.00 DEPARTMENT VISIT HIGH/URGENT SEVERITY (06327-74) Nurse/IV/IM/Infusions Drip/IVPB initial 759930 1 $0.00 $0.00 (12344) Grand Total $0.00 Providers Fred Harp D.O. Chief Complaint SKIN RASH and TENDER AREA. Principal Diagnosis Cellulitis of the back. 1 of 2 [facility] ICD-10 Codes L03.312: Cellulitis of back [any part except buttock] 2 of 2 Normal [facility] ED VISIT SUMMARYon ED VISIT SUMMARY Visit Overview Visit Overview [address] [address] [id number] 04/26/2025 Patient: JERAD MANN Sex: Female : 1995 Age: 30y 04/26/2025 05:48 PM EDT ED Arrival:15:16 04/26/2025 EDT Status: Recent Travel:no Language:eng Adv Directive:No Isolation Status: Ethnicity:N Fall Risk:no risk Infectious Disease Exposure:no Measurements:5'1 / 154.9 Self-Harm Status:risk Sepsis Screen:negative cm 120.0 lb / 54.4 kg Chief Complaint:SKIN RASH and ([place]rystal) ALLERGIES No Known Drug Allergies HOME MEDICATIONS None PAST MEDICAL HISTORY / PROBLEMS None See nurses notes 1 of 3 Visit Overview PAST SURGICAL HISTORY No Surgeries SOCIAL HISTORY Smoking status: No Alcohol use: No Drug use: No ED COURSE MEDICATIONS GIVEN IN EMERGENCY DEPARTMENT CefTRIAXone (Rocephin) IVPB 2gm/50ml NS 2 g diluted in sodium chloride IVPB 0.9 17:14 04/26/25 % Minibag+ 50 mL 100 mL/hr 17:14 04/26/25 Bactrim DS PO 1 tab IV SITE INFORMATION INTAKE OUTPUT REASSESMENT (most recent) 15:45 04/26/25. Ambulatory to room. GENERAL / NEURO / PSYCH: Alert. The patient does not appear to be in acute distress. Oriented X 4. HEENT: Pupils equal, round and reactive to light. Mucous membranes are pink. RESPIRATORY: Respirations not labored. CVS: Pulses within normal limits. GI / : Abdomen nontender. SKIN: Skin is intact, warm and dry. Well-demarcated, tender, warm skin rash with an erythematous base present in the right axilla. Normal skin turgor. Skin tenderness present. VITAL SIGNS First Vitals Last Vitals Temp 15:26 04/26/25 98.5 F Temp 15:04/26/25 98.5 F BP 15:26 04/26/25 111/65 BP 15:04/26/25 111/65 HR 15:04/26/25 102 HR 15:04/26/25 102 RR 15:04/26/25 18 RR 15:04/26/25 18 O2 Sat 15:26 04/26/25 97% O2 Sat 15:04/26/25 97% Pain 15:26 04/26/25 9 Pain 15:04/26/25 9 2 of 3 Visit Overview First Vitals Last Vitals ETCO2 15:26 04/26/25 ETCO2 15:26 04/26/25 GCS 15:04/26/25 15 GCS 15:26 04/26/25 15 RTS 15:04/26/25 RTS 15:04/26/25 PROCEDURES NURSING INTERVENTIONS LABS / STUDIES LABS / STUDIES ORDERED CBC w Diff CMP CRP Lactate, Serum CLINICAL IMPRESSION CELLULITIS OF THE BACK 3 of 3 Normal [facility] ED VITALS FLOW SHEETon 04-26 ED VITALS FLOW SHEET Vitals Vital Sign Flow Sheet [facility] [address] [place] [address] [id number] 04/26/2025 Patient: JERAD MANN Sex: Female : 1995 Age: 30y Measurements Wt: 54.4 kg, Ht/Srinivas: 61.0 in, BMI: 22.67 Measured Time BP MAP HR RR O2Sat ETCO2 Temp Pain GCS RTS 15:26 04/26/2025 111/65 80 102 18 97% 98.5 F 9 15 1 of 1 Normal [facility] LACTATEon 04-26-2025 Lactate [Moles/Vol] 1.9 mmol/L Normal 0.4 - 2.0 [facility] Comment on above: Performed By: #### 2 [id number] #### [facility],[address] [place] [address] Bacteria Ur Culton 4 Bacteria identified Cx Nom (U) ORGANISM ID: 1 >=100,000 CFU/ml Escherichia coli ORGANISM ID: 1 (ESCHERICHIA COLI) ------ ANTIBIOTIC INTERPRETATION AUGUST STATUS REFERENCE RANGE ------ Ampicillin R >=32 F Susceptible <=8 , Intermediate >8 , Resistant >16 Cefazolin S <=4 F Susceptible 0-16 , Intermediate <0 or >16 , Resistant >16 For uncomplicated urinary tract infections, cefazolin results can be used to predict susceptibility or resistance to cephalexin. Ceftriaxone S <=1 F Susceptible <=1 , Intermediate >1 , Resistant >=4 Cefepime S <=1 F Susceptible <=2 , Susceptible-Dose Dependent >2 , Resistant >=16 Ertapenem S <=0.5 F Susceptible <=0.5 , Intermediate >.5 , Resistant >1 Meropenem S <=0.25 F Susceptible <=1 , Intermediate >1 , Resistant >2 Ampicillin/Sulbact S 4 F Susceptible <=8 , Intermediate >8 , Resistant >16 Piperacillin/Tazobac S <=4 F Susceptible <16 , Susceptible-Dose Dependent >=16 , Resistant >=32 Gentamicin S <=1 F Susceptible <=2 , Intermediate >2 , Resistant >=8 Tobramycin S <=1 F Susceptible <4 , Intermediate >=4 , Resistant >=8 Trimeth sulfameth S <=20 F Susceptible <=40 , Resistant >40 Ciprofloxacin R >=4 F Susceptible <0.5 , Intermediate >=.5 , Resistant >=1 Nitrofurantoin S <=16 F Susceptible <=32 , Intermediate >32 , Resistant >64 Abnormal [facility] Comment on above: Performed By: #### 6 30-4 #### [facility] CLIA [id number] [address] [place] [address] [place] [employer] Concentration Cytology Reporton 2021 [employer] Concentration Cytology Report . Pathology Reports Accession: Collected Date/Time: Received Date/Time: Pathologist: [id number] 03/15/2022 10:31 EDT 03/15/2022 18:00 EDT [employer] Con[employer] Cytology Report SPECIMEN: Specimen Description: Liquid Prep Reflex ASCUS Specimen: Cervical/Endocervical Screening or Diagnostic: Screening RELEVANT HISTORY: LMP: 02-17-22 [id number] SPECIMEN ADEQUACY: SATISFACTORY FOR EVALUATION ENDOCERVICAL/TRANSFOR MATIONAL ZONE COMPONENT ABSENT/INSUFFICIENT INTERPRETATION/RESULT S: NEGATIVE FOR INTRAEPITHELIAL LESION OR MALIGNANCY COMMENT: This Pap Test was successfully processed and evaluated with the assistance of the [employer] Thin Prep Test Imaging System. Electronically Signed by Pathology report verified by [facility] Screened by: JULIANE Electronically signed by Gaviota DYSON (ASCP) Sign-Out Date: 03/22/2022 11:27 Performing Lab: [facility], [address] [place] [address] Disclaimer The Pap test is a screening test for cervical cancer. As evidenced by published data, it is sub ject to both inherent false negative and false positive results. Your patient's results should be interpreted in context with pertinent clinical history including gynecological examination. Normal [facility] ([place]) Iodideon 09-08-2019 Iodide 67 ng/mL Normal 40-92 [facility] VitD, 1,25 Dihydroxyon 09-05 1,25 Dihydroxy VitD2 <4.0 Normal [facility] Comment on above: Performed By: #### 1 25VTD #### [facility] [address] [address] 1,25 Dihydroxy VitD3 97.4 pg/mL Normal [facility] Comment on above: Performed By: #### 1 25VTD #### [facility] [address] [address] Vit D,1,25 DiOH High 15.0-60.0 [facility] Comment on above: Result Comment: 97.4 This test was developed and its performance characteristics determined by [facility]'s Emil Marlene [facility] Pathology and Laboratory Medicine [place] ([facility]). It has not been cleared or approved by the FDA. [facility] is regulated under CLIA as qualified to perform high complexity testing. This test is used for clinical purposes. It should not be regarded as investigational or for research. Performed By: #### 1 25VTD #### [facility] [address] [address] CMV IgM Antibodyon 9 CMV IgM Antibody <8.0 Normal [facility] CMV IgM, Qual Negative Normal Negative [facility] Rubella IgG Antibodyon 06-09 Rubella IgG Ab 0.65 Index Value Normal [facility] Rubella IgG Ab, Qual Negative Normal Negative [facility] [id number] Ag +HIV12 Abon 06-07 HIV 12 Ag/Ab NR Normal Non Reactive [facility] HIV Interpretation Negative Normal [facility] HIV-1/2 Antibody NOTI Normal [facility] Hep C Ab IA w/Confon 019 Hepatitis C Ab IA NEGAT Normal Negative [facility] Hepatitis B Surf. Agon 06-07 Hepatitis B Surf. Ag NEGAT Normal Negative [facility] RPRon 06-07-2019 Reagin Ab RPR Ql (S) NR Normal Non Reactive [facility] Encounters Encounter Date Encounter Type Care Provider Facility Start: 10-05-2025 End: 10-05-2025 ambulatory Bessy Mayers NP Facility:[facility] Start: 10-01-2025 End: 10-01-2025 ambulatory Fred Price Facility:[facility] Start: 09-28-2025 End: 09-28-2025 Emergency department patient visit Fred Albert Facility:[facility] Start: 04-26-2025 End: 04-26-2025 [facility] Date Payer Category Payer Self-pay Unknown [id number] Unknown [id number] Unknown [id number] Summary Purpose Family History No Family History Records FoundNo Family History Records FoundNo Family History Records FoundNo Family History Records FoundNo Family History Records Found Advance Directives No Advanced Directives Records FoundNo Advanced Directives Records FoundNo Advanced Directives Records FoundNo Advanced Directives Records FoundNo Advanced Directives Records Found Additional Source Comments INFORMATION SOURCE (unrecogn ized section and content) DATE CREATED AUTHOR 09/09/2019 [facility] DATE CREATED AUTHOR AUTHOR'S ORGANIZ ATION 03/25/2022 [facility] ([place] DATE CREATED AUTHOR AUTHOR'S ORGANIZ ATION 03/24/2024 [facility] DATE CREATED AUTHOR AUTHOR'S ORGANIZ ATION 04/27/2025 [facility] DATE CREATED AUTHOR AUTHOR'S ORGANIZ ATION 10/07/[address] [facility] FOR RECORDS PERTAINING TO PATIENTS WHO ARE OR HAVE BEEN ENROLLED IN A CHEMICAL DEPENDENCY/SUBSTANCEABUSE PROGRAM, SOME INFORMATION MAY BE OMITTED. This clinical summary was aggregated from multiple sources. Caution should be exercised in using it in the provision of clinical care. This summary normalizes information from multiple sources, and as a consequence, information in this document may materially change the coding, format and clinical context of patient data. In addition, data may be omitted in some cases. CLINICAL DECISIONS SHOULD BE BASED ON THE PRIMARY CLINICAL RECORDS. [facility] [employer] [facility]. provides no warranty or guarantee of the accuracy or completeness of information in this document.
== END 2025-10-12 10:45 | disposition home or self-care (01) ==
LOC: ED 14:55
PROVIDERS: PCP Nurse Practitioner Family; Visit Provider Emergency Medicine
DX: Z23 Encounter for immunization (principal)
CPT/HCPCS: 90675; 96372